=== PATIENT | male | born 1980 | race Two or more races ===

== ENCOUNTER 2018-11-04 07:30 | Day surgery (SDC) | payer OTHER ==
[~2018-11-04] VITALS: Ht 180.3 cm; Wt 95.2 kg
[~2018-11-04 07:30] MED LIST: ACETAMINOPHEN 500 MG TAB PO ONE
[2018-11-04 08:17] VITALS: Ht 180.3 cm; Wt 95.2 kg
[2018-11-04 08:22] VITALS: BP 127/75; PULSE 61; RESP 16
[2018-11-04] MEDS ORDERED: LACTATED RINGER'S 1,000 ML IV SCH (08:30)
--- NOTE | 2018-11-04 10:24 | HPN ---
Date/Time of Note Date/Time of Note DATE: 11/04/18 TIME: 10:24 Interval H&P Admission Note Pt. seen H&P reviewed: No system changes DARÍO METZGER M.D. Nov 04, 2018 10:24
[2018-11-04] MEDS ORDERED: LIDOCAINE 1%/EPI 30 ML INJ ONE (10:31)
--- NOTE | 2018-11-04 10:35 | PREAC ---
Date/Time of Note Date/Time of Note DATE: 11/04/18 TIME: 10:34 Anesthesia Eval and Record Evaluation Time Pre-Procedure Interview DATE: 11/04/18 TIME: 10:34 Age 38 Sex male NPO: 2 hrs Preoperative diagnosis scalp cyst Planned procedure scalp cyst excision Past Medical History Past Medical History: None Surgery & Anesthesia Issues No known issue Meds Anticoagulation: No Beta Arnol within 24 hr: No Reason Beta Arnol not given: Pt. not on B-Arnol No Active Prescriptions or Reported Meds Current Medications Lactated Ringer's 1,000 ml @ 0 mls/hr Q0M IV Last administered on 11/04/18at 08:57; Admin Dose 0 MLS/HR; Start 11/04/18 at 08:30 Meds reviewed: Yes Allergies Coded Allergies: No Known Allergy (Unverified , 11/04/18) Allergies Reviewed: Yes Labs/Studies Labs Reviewed: Reviewed by anesthesiologist test: N/A Pre-procedure Exam Last vitals Vital Signs Date Temp Pulse Resp B/P (MAP) Pulse Ox O2 O2 Flow FiO2 Time Delivery Rate 11/04/18 97.9 61 16 127/75 99 Room Air 08:22 (92) Airway: Adequate mouth opening, Adequate thyromental dist Mallampati: Mallampati II Teeth: Normal Lung: Normal Heart: Normal ASA Physical Status ASA physical status: 1 Emergency: None Pre-operative Attestations Prior to commencing anesthesia and surgery, the patient was re-evaluated, there was verification of: *The patient's identity *The results of appropriate recent lab work and preoperative vital signs *The above evaluation not changing prior to induction *Anesthetic plan, risk benefits, alternative and complications discussed with patient/family; questions answered; patient/family understands, accepts and wishes to proceed. JACQUE MCKINNEY Nov 04, 2018 10:35
[2018-11-04] MEDS ORDERED: LABETALOL HCL 20MG INJ IV PRN (11:00)
[2018-11-04] MEDS ORDERED: morphine 2 MG INJ IV PRN ×2 (11:00)
[2018-11-04] MEDS ORDERED: HYDROmorphONE 1 MG/5 ML IV SYRINGE IV PRN ×3 (11:00)
[2018-11-04] MEDS ORDERED: MEPERIDINE 25 MG INJ IV PRN (11:00)
[2018-11-04] MEDS ORDERED: OXYCODONE/ACETAMINOPHEN (5/325) TAB PO PRN ×2 (11:00)
[2018-11-04] MEDS ORDERED: ONDANSETRON 4 MG INJ IV PRN (11:00)
[2018-11-04] MEDS ORDERED: ALBUTEROL 0.083% (NEB) 2.5 MG/3 ML AMP HHN PRN (11:00)
[2018-11-04] MEDS ORDERED: FENTAnyl 50 MCG/ML VIAL IV PRN ×2 (11:00)
[2018-11-04] MEDS ORDERED: DIPHENHYDRAMINE 50 MG INJ IV PRN (11:00)
[2018-11-04 11:34] VITALS: BP 130/78; PULSE 59; RESP 27
--- NOTE | 2018-11-04 11:38 | PAC ---
Date/Time of Note Date/Time of Note DATE: 11/04/18 TIME: 11:37 Post-Anesthesia Notes Post-Anesthesia Note Last documented vital signs Vital Signs Date Temp Pulse Resp B/P (MAP) Pulse Ox O2 O2 Flow FiO2 Time Delivery Rate 11/04/18 97.9 98 61 60 16 16 127/75 99 98 Room 08:22 113 (92) 130/ Air RA 4 76 Activity: WNL Respiratory function: WNL Cardiovascular function: WNL Mental status: Baseline Pain reasonably controlled: Yes Hydration appropriate: Yes Nausea/Vomiting absent: Yes JACQUE MCKINNEY Nov 04, 2018 11:38
[2018-11-04 11:40] VITALS: BP 116/77; PULSE 60; RESP 30
--- NOTE | 2018-11-04 11:40 | OPR ---
Date/Time of Note Date/Time of Note DATE: 11/04/18 TIME: 11:36 Operative Report Procedure Date: Nov 04, 2018 Preoperative Diagnosis 1. SCALP LESION VERTEX. Postoperative Diagnosis SAME. Operation/Procedure Performed EXCISIONAL BIOPSY SCALP LESION. 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 Grafts/Implants none Tubes/Drains NONE. Complications none Pt Condition Post Procedure: stable Disposition: PACU Indications TO RID TUMOR. Procedure Description SEE DICTATED OPERATIVE REPORT. DARÍO METZGER M.D. Nov 04, 2018 11:40
[2018-11-04] MEDS ORDERED: KETOROLAC 15 MG INJ IV STA (11:41)
[2018-11-04] MEDS ORDERED: KETOROLAC 15 MG INJ ONE (11:42)
[2018-11-04 11:45] VITALS: BP 115/73; PULSE 54; RESP 28
--- NOTE | 2018-11-04 11:47 | PDOCDIS ---
Discharge Instructions DIAGNOSIS Discharge Diagnosis 1. SCALP LESION VERTEX. CONDITION [id number] Patient Condition: [id number] Good HOME CARE INSTRUCTIONS: [id number] Diet Instructions: Suhyc1f Regular ACTIVITY: Enomk0Ew Activity Restrictions: Knovt2f Slowly Increase Activity Rest between Activity Avoid heavy lifting No Sexual Activity Avoid Heavy Housework [id number] Bathing Restrictions: Lytwv5l Tub Bath FOLLOW UP/APPOINTMENTS Follow-up Plan MY OFFICE IN 7 TO 10 DAYS. SCHOOL/WORK RELEASE May return to School/Work on: Nov 06, 2018 May return to School/Work with: No Restrictions DARÍO METZGER M.D. Nov 04, 2018 11:47
[2018-11-04 11:50] VITALS: BP 110/70; PULSE 66; RESP 22
[2018-11-04 12:00] VITALS: BP 116/74; PULSE 58; RESP 16
--- NOTE | 2018-11-04 13:01 | OPR ---
DATE OF OPERATION: 11/04/2018 SURGEON: Wilbert Castaneda MD PREOPERATIVE DIAGNOSES: Vertex scalp lesion, rule out underlying carcinoma. POSTOPERATIVE DIAGNOSES: Vertex scalp lesion, rule out underlying carcinoma. OPERATION PERFORMED: Excisional removal of a vertex of the scalp lesion. ANESTHETIC USED: MAC anesthesia with local infiltrate of 3 mL of 1% lidocaine with epinephrine 1:100 ,000 using 25-gauge 1-1/2 inch needle. INDICATIONS: The patient is a 38-year-old male who has a slowly growing scalp lesion. The patient is here for excisional removal of the lesion under MAC anesthesia. Risks, benefits, and alternatives have been explained thoroughly to the patient. They include scar formation, possible postoperative hematoma, possible regrowth of the lesion as well as possible reaction to local anesthetic agents brendan t will be used during the procedure. The patient was also given 1 gram of Ancef before the case was begun. ESTIMATED BLOOD LOSS: Less than 2 mL. COMPLICATIONS: No complications. SPECIMENS SENT TO LAB: Circular solitary tumor removed from the subcuticular tissue of the vertex of the scalp. DESCRIPTION OF PROCEDURE: The patient was taken to the operating room, placed on the surgical table in supine position, made comfortable by the DIRECTOR PRODUCT SAFETY. The patient had EKG, saturation monitor and blood pressure cuff applied. The patient was then made comfortable as the table was then turned to the lef t 90 degrees before being relocked. At this point, a brief time-out with patient identification and procedures entertained, and all were in agreement. The patient had a scrub to the vertex of the scal p area with Betadine scrub and paint reagent. At this point, a sterile field was created with towels and a split sheet. At this point, the patient was then acknowledged that he was comfortable, and th ere was no oxygen used during the procedure. The patients scalp was then injected using a 25-gauge 1 -1/2 needle and 1% lidocaine with epinephrine 1:100,000 solution using approximately 3 mL over a vert ex slightly right-sided circular lesion. Maximal time was then allowed for the effect of this medica tion as the procedure was begun by making a horizontal incision on the scalp with a #15 [employer]-Kirk s harp stainless steel blade. This incision was carried down through the skin down to the subcuticular tissue area. At this point, the capsule of the lesion was then identified and using blunt and sharp dissection with a Aida clamp, the circular solitary lesion was then removed. At this point, the in cision site showed some bleeding as pinpoint cauterization was then used to cauterize bleeding points in the subcuticular tissue. This matters for hemostasis. No further bleeding was noted. At this p oint, the skin was closed using 4-0 nylon sutures in simple interrupted fashion. After closure of th e wound site and Tegaderm and 2 x 2 placed over the wound site as a pressure dressing. This ended th e procedure. Sponge count and instrument count correct x3. There were no complications during the p rocedure. The patient was then taken to the recovery room where he is currently doing well, expects to be discharged home unless postoperative complications develop. Dictated By: WILBERT LINDSAY/GEOFF Conf#: [id number] DID#: [id number]
== END 2018-11-04 12:21 | disposition home or self-care (01) ==
LOC: SDS 07:30
PROVIDERS: ATTEND Otolaryngology Otolaryngology/Facial Plastic Surgery
DX: L72.11 Pilar cyst (principal)
CPT/HCPCS: 11422; 88304; J1885; Z7512; Z7610